=== PATIENT | female | born 1960 | race Caucasian/White ===

== ENCOUNTER → 2016-12-16 | Outpatient (CLI) | payer MEDICARE, OTHER ==
--- NOTE | 2016-12-16 15:57 | RAD ---
DATE: 12/16/2016 EXAM: DIGITAL SCREEN BILAT W/CAD HISTORY: Screening COMPARISON: 11/10/2015 This study was interpreted with the benefit of Computerized Aided Detection (CAD). FINDINGS: Breast Density: SCATTERED The breast parenchyma shows scattered fibroglandular densities. Breast parenchyma level B. There has not been significant change in the appearance of the breasts when compared to the previous exam IMPRESSION: Benign findings BI-RADS CATEGORY: 2 BENIGN FINDING(S) RECOMMENDED FOLLOW-UP: 12M 12 MONTH FOLLOW-UP PQRS compliance statement: Patient information was entered into a reminder system with a target due date 12/16/2017 for the next mammogram. Mammography is a sensitive method for finding small breast cancers, but it does not detect them all and is not a substitute for careful clinical examination. A negative mammogram does not negate a clinically suspicious finding and should not result in delay in biopsying a clinically suspicious abnormality. "Our facility is accredited by the [employer] Mammography [employer]."
== END | disposition home or self-care (01) ==
LOC: MAMMO 15:01
PROVIDERS: ATTEND Family Medicine
DX: Z12.31 Encounter for screening mammogram for malignant neoplasm of breast (principal)
CPT/HCPCS: G0202; 77067

== ENCOUNTER → 2018-04-30 | Outpatient (CLI) | payer MEDICARE, OTHER ==
--- NOTE | 2018-04-30 19:21 | KCIC ---
Bilateral digital screening mammograms with 3-D tomosynthesis: Reason for examination: Routine screening. Comparison is made to previous studies dated 12/16/2016 and 11/10/2015. Bilateral mammograms in CC and oblique projections were obtained with 2-D imaging and 3-D tomosynthesis imaging on a Siemens Inspiration unit and reviewed on the workstation. Interpretation was made with the benefit of CAD. The skin and nipples show no abnormalities. No abnormal axillary lymph nodes are seen. The breast parenchyma shows scattered fatty and fibroglandular density. (Breast density: Category B.) There continues to be some asymmetric parenchyma anteriorly in the upper outer quadrant of the right breast which has not changed. There also continues be a nodular density at the 6:00 B position of the right breast which is unchanged. In the left breast however, there is suggestion of architectural distortion superiorly on the left oblique view without a definite CC correlate. Further evaluation with coned compression views in lateral and cc projections is recommended and left breast ultrasound. There are no other new dominant masses, suspicious calcifications or architectural distortion. Impression: Possible architectural distortion on the left oblique view superiorly. Recommend further evaluation with coned compression views in CC and lateral projections and with left breast ultrasound. BI-RAD Category 0: Incomplete. Needs additional imaging evaluation. "Our facility is accredited by the [employer] Mammography [employer]." This patient's information has been entered into a reminder system for the patient to be notified with the results of her examination and a target date for the next mammogram. Electronically signed by: Mildred Mckenzie MD (04/30/2018 7:17 PM) [id number]
== END | disposition home or self-care (01) ==
LOC: KCIC MAMMO 15:09
PROVIDERS: ATTEND Family Medicine
DX: Z12.31 Encounter for screening mammogram for malignant neoplasm of breast (principal)
CPT/HCPCS: 77063; 77067

== ENCOUNTER → 2018-05-08 | Outpatient (CLI) | payer MEDICARE, OTHER ==
--- NOTE | 2018-05-11 12:08 | RAD ---
DATE: 05/08/2018 EXAM: DIGITAL DIAGNOSTIC LT, BREAST LEFT HISTORY: Suspicious screening study COMPARISON: 04/30/2018 This study was interpreted with the benefit of Computerized Aided Detection (CAD ). Breast Density: SCATTERED The breast parenchyma shows scattered fibroglandular densities. Breast parenchyma level B. FINDINGS: Spot compression MLO and straight medial lateral views of the left breast were obtained. No mass or specific abnormality is identified in the area of concern described on the screening study. Left breast ultrasound, 04/30/2018: A targeted ultrasound exam of the left breast was performed from the 11:00 to 5: 00 locations. Normal heterogeneous fibroglandular shadows are present. At the 1:00 location approximately 5 cm from the nipple there is a tiny 3 mm hypoechoic nodule. It is wider than tall. No definite posterior acoustic enhancement or shadowing is seen. The majority of its margins are smooth. The findings suggest a benign process such as a small fibroadenoma or complicated cyst. No other abnormality is identified. IMPRESSION: Probably benign small nodule at the 1:00 location identified at ultrasound. Sonographic surveillance beginning in 4-6 months is suggested to establish stability. BI-RADS CATEGORY: 3 PROBABLY BENIGN FINDING(S)-SHORT INTERVAL FOLLOW-UP SUGGESTED RECOMMENDED FOLLOW-UP: 6M 6 MONTH FOLLOW-UP PQRS compliance statement: Patient information was entered into a reminder system with a target due date for the next mammogram. Mammography is a sensitive method for finding small breast cancers, but it does not detect them all and is not a substitute for careful clinical examination. A negative mammogram does not negate a clinically suspicious finding and should not result in delay in biopsying a clinically suspicious abnormality. "Our facility is accredited by the [employer] Mammography [employer]." MTDD
== END | disposition home or self-care (01) ==
LOC: MAMMO 12:58
PROVIDERS: ATTEND Family Medicine
DX: R92.8 Other abnormal and inconclusive findings on diagnostic imaging of breast (principal)
CPT/HCPCS: 76641; 77065

== ENCOUNTER → 2018-11-06 | Outpatient (CLI) | payer MEDICARE, OTHER ==
--- NOTE | 2018-11-06 14:48 | KCIC ---
Left breast ultrasound: Reason for examination: Follow-up nodule. Comparison is made to previous study dated 05/08/2018. Ultrasound examination was performed in the area of sonographic concern and at the 1:00 position and at the axilla. There continues to be a small 3.7 mm hypoechoic fibrocystic type lesion lying in parallel orientation which shows no significant change. No other cystic or solid nodules are seen. No abnormal appearing lymph nodes are seen in the axilla. IMPRESSION: Small fibrocystic lesion at the 1:00 position showing no significant interval change. No new cystic or solid lesions. No abnormal appearing lymph nodes in the axilla. Recommend 6 month sonographic follow-up of the left breast at the time of bilateral mammograms. BI-RADS Category 3: Probably Benign. "Our facility is accredited by the [employer] Mammography [employer]." This patient's information has been entered into a reminder system for the patient to be notified with the results of her examination and a target date for the next mammogram. Electronically signed by: Mildred Mckenzie MD (11/06/2018 2:46 PM) [id number]
== END | disposition home or self-care (01) ==
LOC: KCIC US 14:12
PROVIDERS: ATTEND Family Medicine
DX: N64.89 Other specified disorders of breast (principal)
CPT/HCPCS: 76641

== ENCOUNTER → 2019-05-07 | Outpatient (CLI) | payer MEDICARE, OTHER ==
--- NOTE | 2019-05-07 14:10 | RAD ---
DATE: 05/07/2019 9:36 AM EXAM: MAMMO MARC MICAELA NOEL, BREAST LEFT HISTORY: short-term imaging followup of a probably benign finding in the left breast. COMPARISON: Prior mammogram 11/06/2018, 05/08/2018, 04/30/2018. Prior ultrasound 05/08/2018, 11/06/2018 Bilateral CC and MLO views of the breasts were performed. Bilateral breast tomosynthesis was performed in CC and MLO projections. This study was interpreted with the benefit of Computerized Aided Detection (CAD). FINDINGS: Breast Density: SCATTERED The breast parenchyma shows scattered fibroglandular densities. Breast parenchyma level B Benign calcifications are present. The parenchymal pattern appears stable. No suspicious masses, microcalcifications or architectural distortion is present to suggest malignancy in either breast. The visualized axillae are unremarkable. ULTRASOUND FINDINGS: Targeted ultrasound of the left breast 1:00 position, 5 cm from the nipple: A hypoechoic mass of circumscribed margins and round/oval shape is present, measuring 4 x 2 x 2 mm. This demonstrates internal homogenous echogenicity. IMPRESSION: Probably benign left breast mass for which short interval follow-up is recommended. BI-RADS CATEGORY: 3 PROBABLY BENIGN FINDING(S)-SHORT INTERVAL FOLLOW-UP SUGGESTED RECOMMENDED FOLLOW-UP: 6M 6 MONTH FOLLOW-UP follow-up ultrasound in 6 months is recommended. PQRS compliance statement: Patient information was entered into a reminder system with a target due date for the next mammogram. Mammography is a sensitive method for finding small breast cancers, but it does not detect them all and is not a substitute for careful clinical examination. A negative mammogram does not negate a clinically suspicious finding and should not result in delay in biopsying a clinically suspicious abnormality. "Our facility is accredited by the [employer] Mammography [employer]."
== END | disposition home or self-care (01) ==
LOC: MAMMO 09:34
PROVIDERS: ATTEND Family Medicine
DX: N63.21 Unspecified lump in the left breast, upper outer quadrant (principal)
CPT/HCPCS: 76641; 77066; G0279; 77062